=== PATIENT | female | born 1960 | race Caucasian/White ===

== ENCOUNTER 2019-12-29 07:21 | Outpatient (CLI) | payer OTHER ==
[2019-12-29 10:41] LABS: #Eosinphils 0.2 thou/uL (0.0-0.7); #Lymphocytes 1.6 thou/uL (1.20-3.40); #Monocytes 0.5 thou/uL (0.11-0.59); #Neutrophils 3.4 thou/uL (1.40-6.50); %Basophils 0.7 % (0.0-1.0); %Eosinophils 2.7 % (0.0-10.0); %Lymphocytes 28.3 % (21.0-51.0); %Monocytes 8.1 % (0.0-10.0); %Neutrophils 60.2 % (42.0-75.0); Hemoglobin 13.9 g/dL (12.0-16.0); Mean Corpuscular HGB CONC 33.3 g/dL (32.0-36.0); Mean Corpuscular Hemoglobin 30.9 pg (27.0-31.0); Mean Corpuscular Volume 92.7 fL (78.0-98.0); Mean Platelet Volume 7.5 fL (7.4-10.4); Platelet Count 313 thou/uL (130-400); RBC Distribution Width 11.4 % (11.5-14.5); Red Blood Cell (RBC) Count 4.49 mill/uL (4.20-5.40); White Blood Cell (WBC) Count 5.7 thou/uL (4.8-10.8)
[2019-12-29 11:04] LABS: Anion Gap 12 mmol/L (10-20); BUN (Urea Nitrogen) 16 mg/dL (9.8-20.1); Calc. Creatinine Clearance 0 mL/min (70-130); Calcium 9.5 mg/dL (7.8-10.44); Carbon Dioxide 26 mmol/L (22-29); Chloride 103 mmol/L (98-107); Estimated GFR-MDRD 74; Glucose 89 mg/dL (70-105); Potassium 4.2 mmol/L (3.5-5.1); Sodium 137 mmol/L (136-145)
== END 2019-12-29 07:22 | disposition home or self-care (01) ==
LOC: LABBT 07:21
PROVIDERS: ATTEND Orthopaedic Surgery
DX: Z01.818 Encounter for other preprocedural examination (principal); S83.206A Unspecified tear of unspecified meniscus, current injury, right knee, initial encounter
CPT/HCPCS: 80048; 85025; 93005; 93010

== ENCOUNTER 2019-12-31 06:02 | Day surgery (SDC) | payer OTHER ==
[2019-12-29 09:21] VITALS: BMI 29.0
[2019-12-31] MEDS ORDERED: Bupivacaine PF 0.5% 30 ML VIAL ONE (06:33)
[2019-12-31] MEDS ORDERED: Lidocaine 1% w/Epinephrine 1:100K 20 ML VIAL ONE (06:33)
[2019-12-31] MEDS ORDERED: Bupivacaine 0.25% HCL 30 ML VIAL ONE (06:33)
[2019-12-31] MEDS ORDERED: Fentanyl 250 MCG/5 ML VIAL ONE (06:40)
[2019-12-31] MEDS ORDERED: PROPOFOL 20 ML ONE (06:44)
--- NOTE | 2019-12-31 09:20 | OP ---
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 POSTOPERATIVE DIAGNOSES: 1. 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 2. Multiple tiny small cartilaginous loose bodies throughout the knee. 3. 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 PROCEDURES PERFORMED: 1. Right knee arthroscopy with partial medial meniscectomy. 2. Debridement and shaving of any loose chondral flaps as well as synovitis as well as loose cartilage pieces. CLOTH TRIMMER HAND: None. ESTIMATED BLOOD LOSS: Minimal. COMPLICATIONS: None. ANESTHESIA: The patient did have a local knee block as well as a general anesthetic. DISPOSITION: Went back to [facility] in stable condition. INDICATIONS: This is an active 59-year-old female, who has been having problems with the knee for many months and has finally decided she want to have something done about this. At this time, she decided to have surgery. DESCRIPTION OF PROCEDURE: After all appropriate consent forms were explained and signed, she was taken back to the operative room and at this time was given general anesthetic. Once the level of anesthesia was appropriate, tourniquet was placed on the right thigh. Leg was then placed in arthroscopic leg montilla. The limb was then prepped and draped in standard surgical fashion. The limb was then exsanguinated and the tourniquet was taken up to 250 mmHg. Inferolateral portal was established. Scope was placed into the knee joint. A needle localization technique was then used to make a medial working portal. Diagnostic arthroscopy commenced and immediately we noted her degenerative torn bucket-handle medial meniscus tear that had 2 flaps as the one large piece of meniscus had split in the two and it was basically the whole meniscus that was destroyed. At this time, a small remnant on the posterior horn was snipped and the torn meniscus part was removed using biter, shaver, and grasper. Once this was back down to a stable base, we were able to evaluate the joint itself. There was some significant grade 2 and 3 on the tibial plateau. There was grade 4 and 3 on the medial femoral condyle. There was multiple small cartilaginous loose bodies, which resemble little tiny balls, which were sitting on the synovium throughout the knee. This was debrided throughout the procedure from the anterior portion of the gutters and the suprapatellar pouch. The lateral compartment was entered. There was a bunch of cracks noted on the top and undersurface of the lateral meniscus, almost like a dry earth would appear, but these cracks did not go anywhere upon probing. There was obviously some significant synovitic change underneath the meniscus. This was removed with a shaver. Overall, the cartilage appearance in the lower compartment was in pretty good condition. Lateral and medial gutters were swept through and again. There was a lot of synovitis. There was a lot of the small cartilaginous loose bodies, which were all removed. The suprapatellar pouch showed some grade 2 of the patella. Some early grade 2 of the trochlea did not need any treatment. Again, significant amount of floating cartilaginous loose bodies and some synovitis, which were all taken care of. At this time, we went through the knee one more time looking for any remaining problems. Again, we did look into the notch. PCL was intact. There was no ACL. There was a complete empty wall sign and at this time, we then removed the scope and drained the knee and closed these portal with simple nylon stitch. Bulky sterile dressing was applied. Tourniquet was let down. Toes pinked up nicely. The patient was awakened. She was taken to the recovery room in stable condition. All counts were correct at the end of the case and she did receive preoperative IV antibiotics. Job ID: [id number]
[2019-12-31] MEDS ORDERED: Lidocaine 2% w/Epinephrine 1:200K 20 ML VIAL ONE (10:47)
[2019-12-31] MEDS ORDERED: Ondansetron PF 4 MG/2 ML Vial ONE (10:47)
[2019-12-31] MEDS ORDERED: Ketorolac Tromethamine 30 MG/ML VIAL ONE (10:47)
[2019-12-31] MEDS ORDERED: Bupivacaine HCl 0.5%/Epinephrine 1:200,000/PF 30 ml Vial ONE (10:47)
[2019-12-31] MEDS ORDERED: Lidocaine 1% PF 5 ML VIAL ONE (10:47)
[2019-12-31] MEDS ORDERED: Dexamethasone 20 MG/5 ML VIAL ONE (10:47)
[2019-12-31] MEDS ORDERED: PROPOFOL 200 MG/20 ML VIAL ONE (10:47)
== END 2019-12-31 11:04 | disposition home or self-care (01) ==
LOC: SDC 06:02
PROVIDERS: ATTEND Orthopaedic Surgery
PROC: 0SBC4ZZ Excision of Right Knee Joint, Percutaneous Endoscopic Approach (ICD-10-PCS; principal; 2019-12-31)
DX: S83.211A Bucket-handle tear of medial meniscus, current injury, right knee, initial encounter (principal); S83.511A Sprain of anterior cruciate ligament of right knee, initial encounter; M94.261 Chondromalacia, right knee; I10 Essential (primary) hypertension; E78.5 Hyperlipidemia, unspecified; F32.9 Major depressive disorder, single episode, unspecified; F41.9 Anxiety disorder, unspecified; Z79.899 Other long term (current) drug therapy
CPT/HCPCS: J0670; J0690; J1100; J1885; J2001; J2405; J2704; J3010; S0020